=== PATIENT | female | born 1945 | race Caucasian/White ===

== ENCOUNTER 2016-06-08 22:42 | Inpatient (IN) | payer MEDICARE, MEDICAID ==
[~2016-06-08] VITALS: Ht 165.1 cm; Wt 102.8 kg
[~2016-06-08 22:42] MED LIST: AMARYL DPS4 MG PO; AMARYL2 MG PO; APRESOLINE DPS100 MG PO; APRESOLINE-DPS25 MG PO; ATIVAN DPS2 MG/ML IV; BUSPAR DPS15 MG PO; BUSPAR5 MG PO; BYSTOLIC5 MG PO; CARVEDILOL25 MG PO; CATAPRES-T0.2 MG/24 TD; COREG DPS12.5 MG PO; COREG DPS6.25 MG PO; DULCOLAX-DPS10 MG PR; DUONEB DPS3 ML IH; ELIQUIS2.5 MG PO; ELIQUIS5 MG PO; FEOSOL-DPS325 MG PO; GLUCAGON1 MG/ML PO; GLUTOSE 1537.5 GM PO; HUMALOG100 UNIT/1 SQ; HYDROCODONE 5MG/5 MG PO; IMDUR DPS30 MG PO; IMODIUM DPS2 MG PO; KLOR-CON M2020 ME1 PO; LASIX DPS40 MG PO; LASIX DPS80 MG PO; LEXAPRO DPS10 MG PO; LIPITOR DPS20 MG PO; LOVENOX DP30 MG/0.3 SQ; MAALOX DPS30 ML PO; METOCLOPRAMIDE IV; MIRALAX PACKET17 GM PO; MIRALAX17 GM PO; MYCOSTATIN PWD15 GM TP; NITROSTAT0.4 MG SL; NORMAL SALINE FL5 ML IV; NORVASC DPS10 MG PO; NORVASC5 MG PO; PAXIL10 MG PO; PEPCID DPS20 MG PO; PROTONIX40 MG PO; REMERON DPS15 MG PO; ROCALTROL DP0.25 MCG PO; SENOKOT DPS8.6 MG PO; SPORTS CREAM85 GM TP; SURFAK DPS240 MG PO; SYNTHROID DP0.125 MG PO; SYNTHROID DPS0.15 MG PO; SYNTHROID125 MCG PO; TYLENOL DP650 MG/20. PO; TYLENOL DPS325 MG PO; TYLENOL-DPS650 MG PR; VITAMIN D-32000 UNI1 PO; VITAMIN D31000 UNIT PO; ZESTRIL DPS5 MG PO; ZESTRIL5 MG PO; ZOFRAN4 MG/5 ML IV; [UNRECOGNIZED DRUG - OTHER] IV
--- NOTE | 2016-06-12 21:21 | HP ---
ADMIT: 06/09/2016 RM/LOC: 403 [facility] MR#: [id number] [address] [address] KAYLA VOGEL [address] [place] [address] History and Physical SEX: F AGE: 71 : 1945 DATE OF SERVICE: CHIEF COMPLAINT: Generalized weakness, I cannot get up. HISTORY OF PRESENT ILLNESS: Kayla is a 71-year-old female, normally follows with Dr. Luna in our clinic, who presented in the Emergency Department with the above complaints. Apparently, her sister has been trying to get hold of her all day and was unable to. She went over and found her sister on the floor and was unable to help her up; therefore, she called EMS to come, help her sister. The patient was taken to the Emergency Department, where she was evaluated there, ultimately confined underlying cause for her weakness other than she was severely hypokalemic with low magnesium as well. The patient does have history of traumatic brain injury and has had multiple admissions over the last 2 months for the exact same complaint. There were no other findings of infection and we were asked to admit for further workup and management. PAST MEDICAL HISTORY: Includes: 1. Diabetes mellitus type 2. 2. Congestive heart failure. 3. Hypertension. 4. Chronic iron-deficiency anemia. 5. Anxiety. 6. Chronic kidney disease, stage 4-5. 7. Previous history of dialysis. 8. Hypothyroidism. 9. History of traumatic brain injury with cognitive impairment. 10.Moderate positive lung scan on 03/26/2016, concerning for pulmonary embolism. 11.Generalized debility. 12.Generalized weakness. 13.Noncompliance. 14.Anxiety disorder. 15.Venous insufficiency. 16.Depression. PAST SURGICAL HISTORY: Cholecystectomy, tonsillectomy, and cataract surgery. She did have scopes done on 03/26/2016, showing few scattered gastric fundus polyps. Otherwise, normal-appearing upper endoscopy. This was done for melena. ALLERGIES: TO IODINE, LATEX, MORPHINE, SULFATE, PENICILLIUM, AND ZESTRIL (CAUSES COUGH). MEDICATIONS: Refer to hospital record. FAMILY HISTORY: Mother with hypertension, coronary artery disease, and stroke. Father with renal failure. One of 9 siblings. Brother with colon cancer. ADMIT: 06/09/2016 RM/LOC: 403 [facility] MR#: [id number] [address] [address] [place] [address] History and Physical SEX: F AGE: 71 : 1945 SOCIAL HISTORY: The patient is single, never . Lives alone at home in [place]. Her younger sister helps with her medications and cares. She was recently admitted to [facility], but did not like it there and went back home. No alcohol, drug, or tobacco use. She notes that she is having difficulty home but she is adamantly refuses to live in a skilled nursing. PREVIOUS HOSPITALIZATIONS: The patient was admitted in March for similar like symptoms on March 24 for similar like symptoms; on May 05, for similar symptoms and was at halfway facility in April. REVIEW OF SYSTEMS: Ten-point review of systems obtained, per HPI. Otherwise, negative. PHYSICAL EXAMINATION: VITAL SIGNS: Blood pressure 169/70, pulse 52, respirations 18, temperature 96.5%, 100% on room air. GENERAL: She is arousable. She is alert to self and place but does not know the time. HEENT: Pupils equal, round, and reactive. Extraocular movements intact. Throat clear. Trachea midline. HEART: Regular rate and rhythm. No murmurs. LUNGS: Clear to auscultation bilaterally. ABDOMEN: Soft, nontender, and nondistended. EXTREMITIES: With 1+ edema. NEUROLOGICAL: Intact. No focal deficits. The patient does have general generalized weakness. SKIN: Without any significant findings. LABORATORY DATA: CBC with hemoglobin of 10.6. CMP with potassium of 2.3, creatinine of 2.0, magnesium of 1.3. Albumin of 2.1. Head CT, chronic white matter changes similar to most recent exam. UA was unable to be done. ASSESSMENT AND PLAN: This is a 71-year-old female with: 1. Encephalopathy, likely secondary to electrolyte abnormalities, possible infectious source. 2. Hypertension. 3. Hypokalemia. 4. Hypomagnesemia. 5. Generalize weakness. 6. Generalized debility secondary to age and chronic medical problems. 7. History of traumatic brain injury with moderate cognitive impairments. 8. Noncompliance. 9. Diabetes mellitus type 2. 10.Congestive heart failure. 11.Chronic iron-deficiency anemia. 12.Chronic kidney disease, stage 4-5. 13.Generalized anxiety. ADMIT: 06/09/2016 RM/LOC: 403 [facility] MR#: [id number] [facility] [address] [address] [place] [address] History and Physical SEX: F AGE: 71 : 1945 14.Depression. 15.History of possible pulmonary embolism, on chronic anticoagulation. 16.Malnutrition. PLAN: We will admit the patient for fluid and electrolyte resuscitation. Try to get a UA to make sure that UTI is not causing her encephalopathy. PT/OT. Long discussion with the patient to discuss her continual failure at home and failure to thrive. I think she is at a point where she may need to consider long-term care. She will discuss this further with Dr. Luna but she really does not want to go back to her skilled nursing, even in a short-term capacity of skilled. Home just does not seem to be an option at this point for her. We will monitor throughout hospitalization closely. Hunter James MD/ jax JOB #: [id number] CC: Imer Luna, Attending Physician Imer Luna, Family Physician
--- NOTE | 2016-06-14 16:02 | CO ---
ADMIT: 06/09/2016 RM/LOC: 403 [facility] MR#: [id number] [address] [place], [place] [address] SHAE ANTOINE [facility] [place] [address] Consultation SEX: F AGE: 71 : 1945 DATE OF CONSULTATION: 06/14/2016 ATTENDING PHYSICIAN: Imer Luna CONSULTING PHYSICIAN: Kasey Stafford APRN TIME IN: 1245 hours. TIME OUT: 1335 hours. REASON FOR CONSULTATION: Supportive Care consultation was requested by Dr. James for assistance with goals for care and support. HISTORY OF PRESENT ILLNESS: Ms. Antoine is a 71-year-old female with history of chronic brain injury, chronic kidney disease, heart failure, diabetes mellitus type 2, anxiety and depression. She has been hospitalized four times in the past year and has had six emergency room visits. She presented to the emergency room on June 09 with weakness and hypokalemia. She was found have a urinary tract infection. It is of note that she was here as recently as April with similar complaints. It has been recommended that she have placement for care as she has been living at home and things have not been going all that well. She was in [place] for a short time but then returned home. Prior to this admission, she was found on the floor, unable to get out by her sister. Due to her complexities, Supportive Care consultation was requested to discuss goals for care. In terms of advanced directives, the patient is a full code. She does have a healthcare [id number] in place, who is her sister, Carla Davis, whose phone #[phone]. The patient does not have a living will or other advanced directives. Symptomatically, the patient is weak and debilitated. She is mildly confused. She denies pain or dyspnea. PAST MEDICAL HISTORY: 1. Diabetes mellitus type 2. 2. Congestive heart failure. 3. Hypertension. 4. Chronic iron deficiency anemia. 5. Anxiety. 6. Chronic kidney disease, stage IV to V, with a prior history of dialysis. 7. Hypothyroidism. 8. History of TBI with cognitive impairment. 9. Moderate positive lung scan in March of 2016, concerning for PE. 10.Generalized debility. 11.Generalized weakness. 12.Noncompliance. 13.Anxiety disorder. 14.Venous insufficiency. ADMIT: 06/09/2016 RM/LOC: 403 [facility] MR#: [id number] [address] [address] [place] [address] Consultation SEX: F AGE: 71 : 1945 15.Depression. PAST SURGICAL HISTORY: 1. Cholecystectomy. 2. Tonsillectomy. 3. Cataract surgery. 4. She did have other scopes done in March of 2016, showing scattered gastric fundus polyps. Otherwise, normal-appearing endoscopy. ALLERGIES: THE PATIENT IS ALLERGIC TO IODINE, LATEX, MORPHINE, PENICILLIN, AND ZESTRIL. CURRENT MEDICATIONS: Please see the patient's MAR for specific routes and dosages. Her current medications are as follows: 1. BuSpar. 2. Nitro drip. 3. Seroquel. 4. Rocephin. 5. Norvasc. 6. Catapres. 7. Flu vaccine. 8. Eliquis. 9. Vitamin D. 10.Lexapro. 11.Calcitriol. 12.Lasix. 13.Synthroid. 14.Coreg. 15.Imdur. 16.Magnesium oxide. 17.Apresoline. 18.NovoLog. 19.Maalox. 20.Tylenol. 21.Nitrostat. 22.Glutose. 23.Glucagon. 24.Flagyl. FAMILY HISTORY: Significant for mother with hypertension and coronary artery disease as well as stroke. Her dad had renal failure. SOCIAL HISTORY: The patient is single, never . She lives at home here. She has a sister who helps with her medications and some cares, but is not there 05/11. She was in [place] recently but did not like it there, went back home. She does not use alcohol, drugs, or tobacco. She has adamantly refused in the past to go to the long term. ADMIT: 06/09/2016 RM/LOC: 403 [facility] MR#: [id number] [address] [address] [place] [address] Consultation SEX: F AGE: 71 : 1945 FUNCTIONAL REVIEW: In talking with the patient's sister, she said that she could ambulate at home. Sometimes, her sister would have to help her with dressing and other days she would not. She states that her abilities fluctuate. Prior to her admission, her palliative performance scale was around 50%. Currently, she is in bed most of the time. She is requiring mainly assistance. Her intake is reduced. She is tired. She is mildly confused. Her current palliative performance scale is 40%. REVIEW OF SYSTEMS: A 10-point review of systems was completed and although the patient is mildly confused, she denies any complaints other than those pertinent positives and negatives mentioned in the HPI. PHYSICAL EXAMINATION: GENERAL: The patient is examined in the bed, in no acute distress. VITAL SIGNS: Temperature 96.0, pulse 52, respirations 15, blood pressure 128/61, oxygen 98% on room air. HEENT: Head is normocephalic. Pupils are equal, round, and reactive with a diameter of 3 mm. Oral mucosa pink and moist with fair dentition. NECK: Supple. RESPIRATORY: Respirations are equal and nonlabored. LUNGS: Diminished in the bases bilaterally. CARDIOVASCULAR: Rate and rhythm regular without murmurs, rubs, or gallops. GASTROINTESTINAL: Soft, nontender. Bowel sounds are positive. Last bowel movement was two days ago. MUSCULOSKELETAL: Generalized weakness. No obvious joint deformities. INTEGUMENTARY: Skin turgor is fair. No rashes or wounds noted. NEUROLOGIC: Oriented to place, and states the month is June, but states that the year is "the third." She also tells me that she has a pill in her mouth, but there was nothing there when I examined her. She has a hard time recalling details. PSYCHIATRIC: Calm and cooperative. DIAGNOSTIC DATA: Sodium 140, potassium 4.3, BUN 14, creatinine 1.7, total protein 4.7, albumin 1.7. WBCs 4.3, hemoglobin 9.1, hematocrit 27.6, platelets are 187. IMPRESSION: 1. Debility. 2. Fatigue. 3. Malaise. 4. Malnutrition. 5. Anxiety. 6. Confusion. 7. History of traumatic brain injury with cognitive impairment. 8. Urinary tract infection. 9. Chronic kidney disease. 10.Diabetes mellitus type 2. 11.Palliative care. ADMIT: 06/09/2016 RM/LOC: 403 [facility] MR#: [id number] [address] [address] [place] [address] Consultation SEX: F AGE: 71 : 1945 12.The patient is a full code. PLAN OF TREATMENT: 1. I was able to reach the patient's healthcare khnpx-xt-mxvustfo, Ursula, via telephone. At the time of assessment, the patient is confused and unable to participate in medical decision making. I did have a long discussion with the patient's POA and she is convinced that the patient needs to be motivated more to do things for herself including physical therapy and self cares. She states that she is more motivated at home than when she is in the long term or hospital. She states that the goal is to get the patient back home as soon as possible and that she is arranging 24/7 care. She is agreeable to short-term placement at rehab until caregivers can be put in place for the 24-hour care. Overall, the lmeqr-dm-aukrvpql is overwhelmed and much support was given to her. 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 Additionally, the patient's khtss-bm-pqqejoef is concerned that the fatigue that the patient is experiencing is secondary to medications and is not related to her history of TBI. It is of note that Dr. James did make the patient's BuSpar p.r.n. today to see if this provides any benefit. Much support was given to the POA, and I will continue to follow along and discuss goals in the time ahead. 2. We did review advanced directives and as mentioned, she does have a healthcare iekjb-cu-sizniowv on file; however, has not completed any other advanced directives. Currently, her cognition is not such that she could participate in completing a POLST form or other directives. We will assess for this in the future. 3. I did review code status with the patient's POA and she directs a full code status. 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 4. Overall, this is a tough situation. I will continue to follow along and assist with support and goals pending the patient's status. We would like to thank Dr. James for the invitation to participate in this patient's care. Total consultation time was 50 minutes from 1245 hours to 1335 hours with 27 minutes from 1250 hours to 1317 hours spent pgkz-[id number] with the patient or on the phone with POA discussing goals for care and providing counseling and support. We will continue to follow along. Kasey Stafford CRISTY/ jax JOB #: [id number] CC: Imer Luna, Attending Physician Imer Luna, Family Physician
[2016-06-22] MEDS ORDERED: NORVASC DPS10 MG PO (09:47)
[2016-06-22] MEDS ORDERED: KEFLEX-DPS500 MG PO (09:47)
[2016-06-22] MEDS ORDERED: SLOW-MAG71.5 MG PO (09:48)
[2016-06-22] MEDS ORDERED: FLAGYL-DPS250 MG PO (09:48)
--- NOTE | 2016-06-23 19:13 | ER ---
ADMIT: 06/09/2016 RM/LOC: 403 [facility] MR#: [id number] [address] [facility] [address] [place] [address] SHAE VOGEL [facility] [place] [address] Emergency Room Report SEX: F AGE: 71 : 1945 DATE: 06/08/2016 CHIEF COMPLAINT: Confusion. HISTORY OF PRESENT ILLNESS: The patient is a 71-year-old female, transferred by ambulance from home after fall. Recently hospitalized at [facility] following acute care admission. The patient is unable to give reliable history. Discussions with sister, who is gltzu-gd-gbayoovc, states that she is just not herself at home since recent discharge from hospital for UTI. The patient does complain of bilateral hand and knee pain though she is able to move hand and legs without pain. ALLERGIES: MORPHINE, IODINE, PENICILLIN, ZESTRIL, AND LATEX. MEDICATIONS: Please see nurse's MAR. ILLNESSES: 1. Type 2 diabetes. 2. CHF. 3. Hypertension. 4. Iron deficiency anemia. 5. Anxiety. 6. Chronic kidney disease, stage 4-5 with prior history of dialysis. 7. Hypothyroidism. 8. Traumatic brain injury with cognitive impairment. 9. Generalized weakness. 10.Noncompliance. 11.Anxiety. 12.Venous insufficiency. 13.Depression. OPERATIONS: 1. Cholecystectomy. 2. Tonsillectomy. 3. Cataract extraction with intraocular lens implant. SOCIAL HISTORY: Lives with sister. Nonsmoker. Nondrinker. No illicit drugs. FAMILY HISTORY: Positive for heart disease and chronic renal failure. REVIEW OF SYSTEMS: A 12-point review of systems negative for all other systems, illnesses, or operations except as outlined above. PHYSICAL EXAMINATION: VITAL SIGNS: Temp 97.8, pulse 67, respirations 18, BP 225/82, SaO2 of 100% on room air. GENERAL: Alert. Disoriented, without delusions. At times, agitated, needing redirection. HEENT: Normocephalic. No evidence of epistaxis, rhinorrhea, or otorrhea. ADMIT: 06/09/2016 RM/LOC: 403 [facility] MR#: [id number] [address] [address] SHAE VOGEL [facility] [place] [address] Emergency Room Report SEX: F AGE: 71 : 1945 NECK: Supple without lymphadenopathy or thyromegaly. CHEST: Clear. Breath sounds equal without rales, rhonchi, or wheeze. HEART: Regular rate and rhythm without murmur, gallop, or edema. ABDOMEN: Soft, nontender, nondistended without mass or megaly. Bowel sounds hypoactive. EXTREMITIES: Full range of motion of all major joints. No evidence of injury. SKIN: Intact. NEURO: EOMI, PERRLA. No evidence of drift, dysarthria, or ataxia. Gait, not assessed. MENTAL STATUS: Alert, disoriented without delusions, hallucinations, or abnormal thought content. MEDICAL DECISION MAKING: The patient required Ativan and Geodon for sedation with marked improvement in mental status, delirium, and blood pressure. Given KCl 40 mEq orally and 20 mEq IV piggyback after lab returned, potassium of 2.3, hemoglobin 10.6, stable from most recent hospitalizations. Alcohol, negative. Acetaminophen, negative. TSH 7.6. Free T4 of 1.46. EKG showed sinus rhythm with LVH, unchanged from 03/24/2016. Chest x-ray showed no acute findings. CT head, negative. Discussed findings with Dr. James, who agreed and gave orders to nursing staff. DIAGNOSES: 1. Traumatic brain injury with anxiety and acute delirium. 2. Chronic kidney disease, stage 4 with hypokalemia. 3. Generalized debility, weakness. RECOMMENDATION: Admit inpatient telemetry for Dr. Luna. ADMISSION/DISCHARGE CONDITION: Good. CODE STATUS: The patient is a full code. Erwin Solo MD/ jax JOB #: [id number] CC: Imer Luna MD, Attending Physician Imer Luna MD, Family Physician
--- NOTE | 2016-06-25 07:53 | DS ---
ADMIT: 06/09/2016 RM/LOC: 403 [facility] MR#: [id number] [address] [address] KAYLA VOGEL [facility] [place] [address] General Discharge Summary SEX: F AGE: 71 : 1945 ADMISSION DATE: 06/09/2016 DISCHARGE DATE: 06/20/2016 ADMITTING DIAGNOSIS: Generalized weakness. DISMISSAL DIAGNOSIS: Urinary tract infection. COMPLICATING DIAGNOSES: 1. Hypokalemia. 2. Hypomagnesemia. 3. 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 4. Diabetes mellitus type 2. 5. Congestive heart failure. 6. Hypertension. 7. Iron-deficiency anemia. 8. Chronic severe anxiety disorder. 9. Chronic kidney disease, stage IV. 10.Hypothyroidism. 11.Generalized weakness. 12.Debility. 13.Noncompliance. 14.Venous insufficiency. 15.Depression. CHIEF COMPLAINT AND HISTORY OF PRESENT ILLNESS: A 71-year-old female, presented to the emergency room with complaints of weakness, not able to get up. Her sister who is her power of patent prosecution attorney, Ursula states she went over to her house and found her on the floor, not able to get her up, therefore, ambulance was called and she was brought to the emergency room. She was found to have hypokalemia and hypomagnesemia. Urine showed pyuria and it was cultured. LABORATORY DATA: Prior to dismissal; white count was 4000, hemoglobin 9.3, platelets were 179,000. UA showed +2 leukocytes, positive nitrites, and many bacteria. Electrolytes prior to dismissal; sodium 137, potassium 5.1, chloride 107, CO2 of 22, BUN 23, creatinine 1.9, glucose 110. Liver enzymes were negative. Initial potassium was 2.3 in the emergency room. Alkaline phosphatase was 142, AST 32, ALT 20. Creatinine in the emergency room was 2.0. Magnesium in the emergency room was 1.3 and this was corrected with IV magnesium. Serial blood sugars were in the 100 to 250 range. Free T4 was 1.46 and TSH was 7.67, both slightly elevated. Acetaminophen level was less than 2, salicylate level was less than 1.7. Alcohol level was not detected. Urine culture grew out greater than 100,000 E. coli, resistant to ampicillin and Cipro and Levaquin, but sensitive to all other antibiotics tested. RADIOLOGY REPORTS: CT of the brain showed chronic white matter changes similar to previous exams. EKG shows sinus rhythm with prolonged QT interval. Nonspecific ST-T changes consistent with hypertrophy and/or ischemia. ADMIT: 06/09/2016 RM/LOC: 403 [facility] MR#: [id number] [address] [id number] [address] [place] [address] General Discharge Summary SEX: F AGE: 71 : 1945 COURSE IN THE HOSPITAL: Kayla was admitted, cultures of the urine were obtained, she was placed on subcu Lovenox for DVT prophylaxis. Her potassium and magnesium were corrected with IV potassium and IV magnesium. She was placed on sliding scale insulin. Lovenox was discontinued. Started on oral Eliquis 2.5 mg b.i.d. Started on Rocephin 1 g IV q.24 hours. Physical Therapy and Occupational Therapy were instituted. Potassium and magnesium were monitored, levels slowly lorne and she required additional doses. She had severe anxiety and was noncompliant with attempts at OT and PT. She was started on BuSpar 7.5 mg b.i.d. She was awake quite a bit at night and was given some sedative medication which did help her sleep some at night. During the day, she was somewhat sleepy. Ursula, power of patent prosecution attorney, was concerned about this, and so multiple medications were put on hold and was placed on p.r.n. to allow her to be more awake. She would get more combative and more irritable during the day. Ursula was not present during the day, would come visit her in the evenings, and was felt that it was not safe for patient to be at home unless she has 24/7 care. Ursula was attempting to make arrangements for this but was not able to find enough help at home for 24/7 care, so [facility] worked on half-way placement. At the time of dismissal, she was still confused and very anxious, but was slightly improved. She was transferred to [facility]. MEDICATION: At time of transfer were: 1. Coreg to 6.25 mg b.i.d. 2. Eliquis 2.5 mg b.i.d. 3. Flagyl 250 mg p.o. t.i.d. 4. Imdur 30 mg p.o. daily. 5. Keflex 500 mg p.o. t.i.d. 6. Lasix 40 mg p.o. daily. 7. Norvasc 10 mg p.o. daily. 8. Rocaltrol 0.25 mg daily. 9. Slow-Mag 128 mg p.o. b.i.d. 10.Synthroid 125 mcg p.o. daily. 11.Vitamin D 2000 units as needed daily. 12.Flu vaccine was given. 13.Catapres patch 0.2 mg patch q.week. 14.Surfak p.r.n. 15.Tylenol p.r.n. 16.BuSpar once a day p.r.n. She was to have a CBC and BMP in three days. She will be seen in our office in a week for a followup. She is to have Accu-Cheks before meals and at bedtime. Imer Luna MD/ jax JOB #: [id number] CC: Imer Luna MD, Attending Physician ADMIT: 06/09/2016 RM/LOC: 403 [facility] MR#: [id number] 26[address] [facility] [address] [place] [address] KAYLA VOGEL [address] [place] [address], [place] [address] General Discharge Summary SEX: F AGE: 71 : 1945 Imer Luna MD, Family Physician
[2016-11-13] MEDS ORDERED: LEXAPRO DPS10 MG PO (13:49)
[2016-11-13] MEDS ORDERED: GLIMEPIRIDE1 MG PO (13:50)
[2016-11-13] MEDS ORDERED: LEVAQUIN DPS250 MG PO (13:50)
[2016-11-13] MEDS ORDERED: SYNTHROID125 MCG PO (13:50)
[2016-11-24] MEDS ORDERED: NORVASC DPS10 MG PO (10:41)
[2016-11-24] MEDS ORDERED: IMDUR DPS30 MG PO (10:41)
[2016-11-24] MEDS ORDERED: ROCALTROL DP0.25 MCG PO (10:41)
[2016-11-24] MEDS ORDERED: LEVOTHYROXINE150 MCG PO (10:42)
[2016-11-24] MEDS ORDERED: BUSPAR DPS10 MG PO (10:43)
[2016-11-24] MEDS ORDERED: CATAPRES-T0.2 MG/24 TD (10:44)
[2016-11-24] MEDS ORDERED: CARVEDILOL25 MG PO (10:44)
[2016-11-24] MEDS ORDERED: AMARYL1 MG PO (10:45)
[2016-11-24] MEDS ORDERED: ASCORBIC ACID500 MG PO (10:45)
[2016-11-24] MEDS ORDERED: IMODIUM DPS2 MG PO (10:46)
[2016-11-24] MEDS ORDERED: LASIX DPS20 MG PO (10:46)
[2016-11-24] MEDS ORDERED: MAG-OX400 MG PO (10:46)
[2016-11-24] MEDS ORDERED: LASIX DPS40 MG PO (10:46)
[2016-11-24] MEDS ORDERED: FEOSOL-DPS325 MG PO (10:47)
[2016-11-24] MEDS ORDERED: VITAMIN D-32000 UNI1 PO (10:47)
[2016-11-24] MEDS ORDERED: MARINOL2.5 MG PO (10:47)
[2016-11-24] MEDS ORDERED: TYLENOL DPS325 MG PO (10:47)
[2016-11-24] MEDS ORDERED: MAALOX DPS30 ML PO (10:48)
[2016-11-24] MEDS ORDERED: APRESOLINE DPS100 MG PO (10:48)
[2016-11-24] MEDS ORDERED: COLACE-DPS100 MG PO (10:48)
[2016-12-24] MEDS ORDERED: APRESOLINE DPS100 MG PO (13:54)
[2016-12-24] MEDS ORDERED: IMODIUM DPS2 MG PO (13:54)
== END 2016-06-20 15:13 | DRG 689 ==
LOC: ER 22:42 → 4PCU 06-09 01:40
PROVIDERS: ADMIT Family Medicine
DX: N39.0 Urinary tract infection, site not specified (principal); G93.41 Metabolic encephalopathy; E46 Unspecified protein-calorie malnutrition; N18.4 Chronic kidney disease, stage 4 (severe); I13.0 Hypertensive heart and chronic kidney disease with heart failure and stage 1 through stage 4 chronic kidney disease, or unspecified chronic kidney disease; I50.9 Heart failure, unspecified; F03.90 Unspecified dementia, unspecified severity, without behavioral disturbance, psychotic disturbance, mood disturbance, and anxiety; Z23 Encounter for immunization; R62.7 Adult failure to thrive; E11.22 Type 2 diabetes mellitus with diabetic chronic kidney disease; F71 Moderate intellectual disabilities; D63.8 Anemia in other chronic diseases classified elsewhere; R45.86 Emotional lability; E83.42 Hypomagnesemia; I87.2 Venous insufficiency (chronic) (peripheral); R53.1 Weakness; E87.6 Hypokalemia; D50.9 Iron deficiency anemia, unspecified; F41.9 Anxiety disorder, unspecified; E03.9 Hypothyroidism, unspecified; R53.81 Other malaise; F32.9 Major depressive disorder, single episode, unspecified; Z82.49 Family history of ischemic heart disease and other diseases of the circulatory system; Z87.820 Personal history of traumatic brain injury; Z91.19 Patient's noncompliance with other medical treatment and regimen; Z79.01 Long term (current) use of anticoagulants

== ENCOUNTER 2016-07-01 12:20 | Emergency (ER) | payer MEDICARE, MEDICAID ==
[~2016-07-01 12:20] MED LIST changes: +FLAGYL-DPS250 MG PO; +KEFLEX-DPS500 MG PO; +SLOW-MAG71.5 MG PO
--- NOTE | 2016-07-03 14:00 | ER ---
ADMIT: 07/01/2016 RM/LOC: ER [facility] MR#: [id number] [address] [facility] [address] [place], [place] [id number] SHAE VOGEL [address] [place] [address] Emergency Room Report SEX: F AGE: 71 : 1945 DATE: 07/01/2016 See T-sheet for complete H and P. ADDENDUM: A 71-year-old female, who comes in with what sounds like some slight mental status changes, seems like she is more tired and has not had interest in eating. She does have multiple chronic medical problems and currently lives at [facility]. We did a CBC which showed that she had some stable anemia. Chemistries were unremarkable. I also checked an ammonia which was normal. Urinalysis did show some white blood cell clumps and moderate bacteria and I believe her symptoms are likely secondary to UTI. She was given her first dose of Levaquin in the Emergency Department. We discharged back to [facility] to continue Levaquin, was also given 1 additional dose of her Lasix in the Emergency Department. She is having some pedal edema which is not new for her but it is slightly worse at this time. We will have her continue her normal dose of Lasix on discharge as she has had problems with chronic renal insufficiency and kidney disease. I spoke to Dr. Red who is on-call for the patient's primary care physician today to make him aware, so the patient can arrange for followup later this week. Edison John MD/ jax JOB #: [id number] CC: Lane Dinero MD, Attending Physician UNKNOWN, Family Physician
[2016-11-13] MEDS ORDERED: LEXAPRO DPS10 MG PO (13:49)
[2016-11-13] MEDS ORDERED: LEVAQUIN DPS250 MG PO (13:50)
[2016-11-13] MEDS ORDERED: SYNTHROID125 MCG PO (13:50)
[2016-11-13] MEDS ORDERED: GLIMEPIRIDE1 MG PO (13:50)
[2016-11-24] MEDS ORDERED: NORVASC DPS10 MG PO (10:41)
[2016-11-24] MEDS ORDERED: ROCALTROL DP0.25 MCG PO (10:41)
[2016-11-24] MEDS ORDERED: IMDUR DPS30 MG PO (10:41)
[2016-11-24] MEDS ORDERED: LEVOTHYROXINE150 MCG PO (10:42)
[2016-11-24] MEDS ORDERED: BUSPAR DPS10 MG PO (10:43)
[2016-11-24] MEDS ORDERED: CATAPRES-T0.2 MG/24 TD (10:44)
[2016-11-24] MEDS ORDERED: CARVEDILOL25 MG PO (10:44)
[2016-11-24] MEDS ORDERED: AMARYL1 MG PO (10:45)
[2016-11-24] MEDS ORDERED: ASCORBIC ACID500 MG PO (10:45)
[2016-11-24] MEDS ORDERED: LASIX DPS40 MG PO (10:46)
[2016-11-24] MEDS ORDERED: LASIX DPS20 MG PO (10:46)
[2016-11-24] MEDS ORDERED: IMODIUM DPS2 MG PO (10:46)
[2016-11-24] MEDS ORDERED: MAG-OX400 MG PO (10:46)
[2016-11-24] MEDS ORDERED: VITAMIN D-32000 UNI1 PO (10:47)
[2016-11-24] MEDS ORDERED: FEOSOL-DPS325 MG PO (10:47)
[2016-11-24] MEDS ORDERED: MARINOL2.5 MG PO (10:47)
[2016-11-24] MEDS ORDERED: TYLENOL DPS325 MG PO (10:47)
[2016-11-24] MEDS ORDERED: MAALOX DPS30 ML PO (10:48)
[2016-11-24] MEDS ORDERED: APRESOLINE DPS100 MG PO (10:48)
[2016-11-24] MEDS ORDERED: COLACE-DPS100 MG PO (10:48)
[2016-12-24] MEDS ORDERED: IMODIUM DPS2 MG PO (13:54)
[2016-12-24] MEDS ORDERED: APRESOLINE DPS100 MG PO (13:54)
== END 2016-07-01 15:20 | disposition home or self-care (01) ==
LOC: ER 12:20
DX: N39.0 Urinary tract infection, site not specified (principal); R60.9 Edema, unspecified; E11.9 Type 2 diabetes mellitus without complications; I10 Essential (primary) hypertension; Z98.890 Other specified postprocedural states; Z88.0 Allergy status to penicillin; Z88.2 Allergy status to sulfonamides; Z88.8 Allergy status to other drugs, medicaments and biological substances; Z79.899 Other long term (current) drug therapy